=== PATIENT | male | born 1950 | race Caucasian/White ===

== ENCOUNTER 2018-02-27 19:10 | Inpatient (IN) | payer MEDICARE ==
[~2018-02-27] VITALS: Ht 180.3 cm; Wt 91.2 kg
--- NOTE | 2018-02-27 19:20 | NUR ---
67 YO Male BIB RA from dinner. patient states wghile eating dinner he had a syncope episode. Patient was in seated position, denies any trauma, family called 911. patient assisted to er bed, skin warm and dry, resp even and unlabored. patient gowned, placed on manager monitoring. awaiting orders from provider, will continue to monitor
[2018-02-27 19:31] LABS: BASOPHILS # (AUTO) 0.1 /CMM (0.0-0.2); BASOPHILS % (AUTO) 1.2 % (0.0-2.0); EOSINOPHILS % (AUTO) 1.5 % (0.0-6.0); HEMATOCRIT 39 % (39-51); HEMOGLOBIN 12.8 g/dL (13.5-17.5); LYMPHOCYTES # (AUTO) 2.5 /CMM (0.8-4.8); LYMPHOCYTES % (AUTO) 30.1 % (20.0-44.0); MEAN CORPUSCULAR HEMOGLOBIN 26 PG (26.0-33.0); MEAN CORPUSCULAR HGB CONC 33 g/dl (31.0-36.0); MEAN CORPUSCULAR VOLUME 79 fL (80-96); MONOCYTES # (AUTO) 0.4 /CMM (0.1-1.30); MONOCYTES % (AUTO) 4.8 % (2.0-12.0); NEUTROPHILS # (AUTO) 5.1 /CMM (1.8-8.9); NEUTROPHILS % (AUTO) 62.4 % (43.0-81.0); PLATELET COUNT (AUTO) 245 /CMM (150-450); RED BLOOD CELL COUNT(AUTO) 4.88 MIL/uL (4.5-6.0); WHITE BLOOD COUNT (AUTO) 8.2 K/uL (4.3-11.0)
--- NOTE | 2018-02-27 19:34 | NUR ---
EMT AT BED SIDE TO CHECK BLOOD SUGAR
[2018-02-27 19:43] LABS: CALCIUM, SERUM 8.7 mg/dL (8.5-10.1); CARBON DIOXIDE 29 mmol/L (21-32); CHLORIDE 103 mmol/L (98-107); CREATININE 1.5 mg/dL (0.6-1.3); GLUCOSE 106 mg/dL (74-106); POTASSIUM 4.1 mmol/L (3.5-5.1); SODIUM SERUM 137 mmol/L (136-145); UREA NITROGEN, BLOOD 17 mg/dL (7-18)
[2018-02-27 19:47] LABS: INR 0.99 (0.85-1.15)
[2018-02-27 19:52] LABS: TROPONIN I < 0.017 ng/mL (0.00-0.056)
--- NOTE | 2018-02-27 20:24 | NUR ---
CALLED [facility] PROVIDER WAS PAGED.
--- NOTE | 2018-02-27 20:38 | NUR ---
REPORT GIVEN TO BRITTNI COHEN FOR RAMÓN
[2018-02-27 20:50] VITALS: BP 147/73
--- NOTE | 2018-02-27 20:52 | NUR ---
TRANSPORTED PT TO TELE BED WITHOUT INCIDENT
[2018-02-27] MEDS ORDERED: ACETAMINOPHEN 325 MG TABLET PO PRN (21:00)
[2018-02-27] MEDS ORDERED: MAGNESIUM HYDROXIDE 30 ML UDC PO PRN (21:00)
[2018-02-27] MEDS ORDERED: MAG HYDROX/AL HYDROX/SIMETH 30 ML UDC PO PRN (21:00)
[2018-02-27] MEDS ORDERED: MORPHINE SULFATE INJ 2 MG/ML DISP.SYRIN IV PRN (21:00)
[2018-02-27] MEDS ORDERED: Z GUARD REMEDY 2 OZ OINT TP PRN (21:00)
[2018-02-27] MEDS ORDERED: ONDANSETRON HCL/PF 4 MG/2 ML VIAL IVP PRN (21:00)
--- NOTE | 2018-02-27 21:15 | NUR ---
CRUISE STAFF MEMBER - ADMISSION NOTES Patient received from ER via [facility] accompanied by ER nurse around 2049 pm. Patient presented to ER with Syncopal episode that happened during dinner time. Patient ambulated from [facility] to tele bed with no incident. Alert/oriented x4, verbally responsive. Accompanied by Son (Max). Denies any chest pain or any pain. Denies SOB. Skin body assessment done. IV on left forearm 18g: intact. Tele monitor shows sinus rhythm; HR 63. Safety measures in place. FALL precaution. Bed in lowest position with call light within reach. Will continue to assess and monitor patient. V/S: BP 147/73 P62 R18 T97.9 SpO2 99%
[2018-02-27] MEDS ORDERED: DEXTROSE 50%-WATER 50 ML DISP.SYRIN IV PRN (22:30)
[2018-02-27] MEDS ORDERED: INSU100I24 SQ (22:48)
[2018-02-27] MEDS ORDERED: RANO10003 PO (22:48)
[2018-02-27] MEDS ORDERED: ATOR20TA PO (22:48)
[2018-02-27] MEDS ORDERED: LIRA0.6P2 SUBCUT (22:48)
[2018-02-27] MEDS ORDERED: ESOM20CA PO (22:48)
[2018-02-27] MEDS ORDERED: ASPI-1169 PO (23:02)
[2018-02-28 04:00] VITALS: BP 134/62
--- NOTE | 2018-02-28 04:58 | NUR ---
BAND SAW OPERATOR NOTES Patient woke up from sleep around 0350 and asked for sandwich and juice. Vitals taken as well while patient was awake. Denies chest pain or any type of pain or discomfort. Not in any type of distress. Currently, patient went back to sleep, made comfortable, easily aroused. IV on left forearm in place with no redness/swelling noted. Tele monitor shows SR; HR 62-63. Safety measures in place. All needs provided and met. Bed in lowest position with call light within reach. Will continue to monitor for any changes
[2018-02-28] MEDS: BLOOD SUGAR DIAGNOSTIC 1 EACH STRIP IN SCH ×4 (07:02→22:30)
[2018-02-28 07:08] LABS: BASOPHILS % (AUTO) 0.4 % (0.0-2.0); EOSINOPHILS % (AUTO) 2.7 % (0.0-6.0); HEMATOCRIT 39 % (39-51); HEMOGLOBIN 12.5 g/dL (13.5-17.5); LYMPHOCYTES # (AUTO) 2.2 /CMM (0.8-4.8); LYMPHOCYTES % (AUTO) 35.4 % (20.0-44.0); MEAN CORPUSCULAR HEMOGLOBIN 26 PG (26.0-33.0); MEAN CORPUSCULAR HGB CONC 32 g/dl (31.0-36.0); MEAN CORPUSCULAR VOLUME 81 fL (80-96); MONOCYTES # (AUTO) 0.4 /CMM (0.1-1.30); MONOCYTES % (AUTO) 7.1 % (2.0-12.0); NEUTROPHILS # (AUTO) 3.3 /CMM (1.8-8.9); NEUTROPHILS % (AUTO) 54.4 % (43.0-81.0); PLATELET COUNT (AUTO) 253 /CMM (150-450); RDW COEFFICIENT OF VARIATION 18.5 (11.5-15.0); RED BLOOD CELL COUNT(AUTO) 4.78 MIL/uL (4.5-6.0); WHITE BLOOD COUNT (AUTO) 6.1 K/uL (4.3-11.0)
--- NOTE | 2018-02-28 07:17 | NUR ---
MS COHEN CLOSING NOTES Report given to oncoming shift nurse. Son to bring all home meds to be reconciled. BS: 152 - 2units given. Dr. Alexander came to assessed patient at bedside. No changes noted and reported. Not in any type of distress. Safety measures in place. Addendum: 02/28/18 at 0726 by ALBINO HUNTER RN PAULY COHEN CLOSING NOTES
[2018-02-28] MEDS: INSULIN REGULAR, HUMAN 100 UNIT/ML 3 ML VIAL SQ PRN ×2 (07:21→19:01)
--- NOTE | 2018-02-28 07:30 | NUR ---
MS RN OPENING NOTES Received patient A/O x4 sitting on bed, no complaint of pain and dizziness. Ambulatory and independent in ADLs. With patent and intact heplock @ LFA G#18. Monitored closely for any unusualities. Kept comfortable and encourage to call the nurse for any concerns. Will continue to monitor.
[2018-02-28 07:31] LABS: BILIRUBIN,TOTAL 0.5 mg/dL (0.2-1.0); CALCIUM, SERUM 8.4 mg/dL (8.5-10.1); CREATININE 1.3 mg/dL (0.6-1.3); MAGNESIUM 1.9 mg/dL (1.8-2.4); PHOSPHORUS 3.5 mg/dL (2.5-4.9); POTASSIUM 4.2 mmol/L (3.5-5.1); TOTAL PROTEIN, SERUM 6.4 g/dL (6.4-8.2)
[2018-02-28 07:40] LABS: THYROID STIMULATING HORMONE 1.259 uIU/mL (0.358-3.74)
[2018-02-28 08:00] VITALS: BP_SYST 138; BP_DIAS 80; BP_DIAS 90
[2018-02-28 08:27] LABS: APPEARANCE,URINE CLEAR (CLEAR); BILIRUBIN,URINE NEGATIVE (NEGATIVE); BLOOD, URINE NEGATIVE Ery/uL (NEGATIVE); COLOR,URINE YELLOW (YELLOW); KETONES,URINE NEGATIVE (NEGATIVE); LEUKOCYTE ESTERASE ,URINE NEGATIVE (NEGATIVE); NITRITE, URINE NEGATIVE (NEGATIVE); PROTEIN,URINE NEGATIVE (NEGATIVE); UGLUCOSE 3+ mg/dL (NEGATIVE)
[2018-02-28] MEDS: ASPIRIN 81 MG TAB.CHEW PO SCH (08:31)
[2018-02-28] MEDS: PANTOPRAZOLE 40 MG TABLET.DR PO SCH (08:31)
[2018-02-28] MEDS: LISINOPRIL (10MG) 10 MG TABLET PO SCH (08:31)
[2018-02-28 08:32] LABS: URINE TOTAL PROTEIN 11.5 mg/dL (0-11.9)
[2018-02-28] MEDS ORDERED: VICTOZA SQ SCH (09:00)
[2018-02-28] MEDS ORDERED: LOSARTAN POTASSIUM 50 MG TABLET PO SCH (09:00)
[2018-02-28] MEDS ORDERED: [UNRECOGNIZED DRUG - OTHER] SQ SCH (09:00)
[2018-02-28] MEDS ORDERED: EMPA25TA PO (09:36)
[2018-02-28] MEDS ORDERED: FURO20TA4 PO (09:36)
[2018-02-28] MEDS ORDERED: CLOP75TA15 PO (09:36)
[2018-02-28] MEDS ORDERED: GABA-534 PO (09:36)
[2018-02-28] MEDS ORDERED: METO-357 PO (09:36)
[2018-02-28 09:41] LABS: BACTERIA,URINE None seen /HPF (None Seen); RBC,URINE NONE SEEN /HPF (0-2); SQUAMOUS EPITHELIAL CELL,UR Few /HPF (None Seen); WBC,URINE NONE SEEN /HPF (0-3)
[2018-02-28 12:00] VITALS: BP 127/69
[2018-02-28] MEDS: HYDROCODONE/APAP 5/325MG 1 EACH TABLET PO PRN ×2 (12:20→16:45)
[2018-02-28 16:00] VITALS: BP_SYST 136; BP_SYST 139; BP_SYST 140; BP_DIAS 76; BP_DIAS 77
--- NOTE | 2018-02-28 18:52 | NUR ---
MS COHEN Closing Notes Patient awake and oriented X 4, on Damon's position. Food served consumed with good appetite, PO meds taken without complications noted, no signs of aspirations noted. Patient able to perform self-care independently, ambulatory with bath room privileges, no complaints of dizziness noted. Family visited with home meds to be reconciled. Pain medication noted to be effective. Ensure patient's safety, all concerns attended. No new unusualities noted at this time. Addendum: 02/28/18 at 1857 by DOMINGO ARGUELLO RN Endorsed to the next shift for continuity of care.
--- NOTE | 2018-02-28 19:40 | NUR ---
RN OPENING NOTES [facility] FOUND Pt AWAKE, RESTING IN BED, WATCHING TV. NO S/S OF ACUTE DISTRESS OR SOB NOTED. Pt IS A/OX4, VERBAL, ABLE TO MAKE NEEDS KNOWN. IV ACCESS LFA #18G, SL. SAFETY MEASURES IN PLACE. BED LOW, LOCKED, HOB ELEVATED, SIDE RAILS UP, CALL LIGHT AND BEDSIDE TABLE WITHIN REACH. WILL CONTINUE TO MONITOR Pt THROUGHOUT THE NIGHT FOR SAFETY.
[2018-02-28 20:00] VITALS: BP 131/52
[2018-02-28] MEDS ORDERED: ATORVASTATIN 10 MG TABLET PO SCH (22:00)
[2018-02-28] MEDS ORDERED: TRESIBA U SQ SCH (22:00)
--- NOTE | 2018-02-28 22:30 | NUR ---
RN NOTES ACCUCHECK BG 113. NO ADDITIONAL INSULIN COVERAGE NEEDED AT THIS TIME.
[2018-03-01] VITALS: BP 125/59
[2018-03-01 04:00] VITALS: BP 119/77
[2018-03-01] MEDS: BLOOD SUGAR DIAGNOSTIC 1 EACH STRIP IN SCH (06:39)
--- NOTE | 2018-03-01 06:45 | NUR ---
RN NOTES ACCUCHECK BG 117. NO INSULIN COVERAGE NEEDED AT THIS TIME.
--- NOTE | 2018-03-01 06:50 | NUR ---
RN CLOSING NOTES NO SIGNIFICANT CHANGES IN Pt's CONDITION. Pt REMAINS STABLE AT THIS TIME. NO S/S OF ACUTE DISTRESS OR SOB NOTED DURING THE SHIFT. Pt SLEPT WELL THROUGHOUT THE NIGHT WITH EVEN AND UNLABORED RESPIRATIONS. TELE READING SR 61/SB 58. SAFETY MEASURES IN PLACE. WILL ENDORSE TO DAYSHIFT RN FOR Pt's RAMÓN.
--- NOTE | 2018-03-01 07:15 | NUR ---
MS RN Opening Notes Received patient asleep on bed on on left side lying. Easily aroused to sound stimuli. With patent saline lock LFA G#18. No complaints of pain at this time. Respiration even and unlabored. Ambulatory without assistance, able to perform ADLs independently. Safety measures in place. Ensure bed is locked and in low position, call light within easy reach. Will continue to monitor.
[2018-03-01] MEDS: PANTOPRAZOLE 40 MG TABLET.DR PO SCH (07:37)
[2018-03-01 08:00] VITALS: BP_SYST 141; BP_SYST 144; BP_DIAS 71
[2018-03-01 08:42] VITALS: BP 141/71
[2018-03-01] MEDS: LISINOPRIL (10MG) 10 MG TABLET PO SCH (08:42)
[2018-03-01] MEDS: ASPIRIN 81 MG TAB.CHEW PO SCH (08:42)
--- NOTE | 2018-03-01 11:45 | NUR ---
M/S RN - Discharge Patient discharged home in stable condition, cleared by cardiac and neuro. Reviewed discharge instructions with patient and he verbalized full understanding of all teachings. Patient made aware that he has an appt [facility] 03[facility]18 at 12:00 pm, followup with PCP within one week. Seek immediate medical attention for worsening symptoms, chest pain, shortness or breath, weakness, fatigue, dizziness, or any other emergent medical concern. All belongings with patient and he denies any missing items. VSS, denies chest pain, no c/o SOB, denies dizziness, not in any form of distress. Patient refused photos to be taken, skin is intact. Patient is ambulatory with steady gait. Discharge papers signed and copy was given per protocol. Accompanied to the lobby and transported by private car by Debby.
== END 2018-03-01 11:45 | disposition home or self-care (01) | DRG 69 ==
LOC: ER 19:11 → TELE 20:33 → MED 03-01 09:00
PROVIDERS: ADMIT Nurse Practitioner Acute Care; ATTEND Nurse Practitioner Acute Care
DX: G45.9 Transient cerebral ischemic attack, unspecified (principal); N17.0 Acute kidney failure with tubular necrosis; E11.22 Type 2 diabetes mellitus with diabetic chronic kidney disease; E11.65 Type 2 diabetes mellitus with hyperglycemia; I12.9 Hypertensive chronic kidney disease with stage 1 through stage 4 chronic kidney disease, or unspecified chronic kidney disease; N18.9 Chronic kidney disease, unspecified; E11.9 Type 2 diabetes mellitus without complications; I25.10 Atherosclerotic heart disease of native coronary artery without angina pectoris; G90.8 Other disorders of autonomic nervous system; Z95.1 Presence of aortocoronary bypass graft; Z87.891 Personal history of nicotine dependence; Z83.3 Family history of diabetes mellitus; Z82.49 Family history of ischemic heart disease and other diseases of the circulatory system; I69.392 Facial weakness following cerebral infarction; G72.9 Myopathy, unspecified; T46.6X5A Adverse effect of antihyperlipidemic and antiarteriosclerotic drugs, initial encounter; Y92.009 Unspecified place in unspecified non-institutional (private) residence as the place of occurrence of the external cause; D50.9 Iron deficiency anemia, unspecified
CPT/HCPCS: 36415; 70450-TC; 71046; 76770-TC; 80048-TC; 80053-TC; 80061-TC; 80305; 81000-TC; 82728-TC; 82962-TC; 83540-TC; 83735-TC; 83880; 84100-TC; 84155-TC; 84300-TC; 84443-TC; 84484-TC; 85025-TC; 85730-TC; 87081-TC; 92611-TC; 93307-TC; 93880-TC; A4606; J1815; Z7610